=== PATIENT | female | born 2000 | race Two or more races ===

== ENCOUNTER 2020-08-05 19:03 | Emergency (ER) | payer MEDICAID ==
[~2020-08-05] VITALS: Ht 170.2 cm; Wt 68.0 kg
--- NOTE | 2020-08-05 19:23 | NUR ---
PA at bedside to evaluate patient
--- NOTE | 2020-08-05 19:25 | NUR ---
BIBS FOR C/O DIZZINESS, DYSURIA, "UTI" AND SORETHROAT . PT AMBULATORY TO BED 2, A, OX4. WAS PLACED TRIXIE MONITOR. VSS
[2020-08-05] MEDS ORDERED: MECLIZINE HCL 12.5 MG TABLET PO ONE (19:30)
[2020-08-05] MEDS ORDERED: IV NS 0.9% 1,000 ML BAG IV ONE (19:30)
[2020-08-05] MEDS ORDERED: MECLIZINE HCL 25 MG TABLET ONE (19:36)
[2020-08-05 19:51] LABS: BASOPHILS % (AUTO) 0.6 % (0.0-2.0); EOSINOPHILS % (AUTO) 1.7 % (0.0-6.0); HEMATOCRIT 45 % (33-45); HEMOGLOBIN 14.5 g/dL (11.5-14.8); LYMPHOCYTES # (AUTO) 1.7 /CMM (0.8-4.8); LYMPHOCYTES % (AUTO) 25.2 % (20.0-44.0); MEAN CORPUSCULAR HGB CONC 32 g/dl (31.0-36.0); MEAN CORPUSCULAR VOLUME 87 fL (82-100); MONOCYTES # (AUTO) 0.7 /CMM (0.1-1.30); MONOCYTES % (AUTO) 10.9 % (2.0-12.0); NEUTROPHILS # (AUTO) 4.2 /CMM (1.8-8.9); NEUTROPHILS % (AUTO) 61.6 % (43.0-81.0); PLATELET COUNT (AUTO) 303 /CMM (150-450); RED BLOOD CELL COUNT(AUTO) 5.18 MIL/uL (4.0-5.2); WHITE BLOOD COUNT (AUTO) 6.8 K/uL (4.3-11.0)
[2020-08-05 19:58] LABS: CALCIUM, SERUM 8.7 mg/dL (8.5-10.1); POTASSIUM 3.7 mmol/L (3.5-5.1)
--- NOTE | 2020-08-05 20:00 | NUR ---
URINE AND RAPID STREP COLLECTED AND SENT TO LAB
[2020-08-05 20:06] LABS: APPEARANCE,URINE CLOUDY (CLEAR); BILIRUBIN,URINE NEGATIVE (NEGATIVE); BLOOD, URINE NEGATIVE Ery/uL (NEGATIVE); COLOR,URINE YELLOW (YELLOW); KETONES,URINE NEGATIVE (NEGATIVE); LEUKOCYTE ESTERASE ,URINE NEGATIVE (NEGATIVE); NITRITE, URINE NEGATIVE (NEGATIVE); PROTEIN,URINE NEGATIVE (NEGATIVE); UGLUCOSE NEGATIVE (NEGATIVE); UROBILINOGEN,URINE 0.2 EU/dL (0.2)
[2020-08-05 20:12] LABS: MONOTEST NEGATIVE (NEGATIVE)
[2020-08-05 20:16] LABS: BACTERIA,URINE None seen /HPF (None Seen); RBC,URINE 0-2 /HPF (0-2); SQUAMOUS EPITHELIAL CELL,UR 0-2 /HPF (None Seen); URINE AMORPHOUS PHOSPHATES Moderate /HPF (None Seen); WBC,URINE 0-2 /HPF (0-3)
--- NOTE | 2020-08-05 21:09 | NUR ---
pt is medically stable for d/c. IV removed. Catheter intact and site benign. Pressure and 4x4 applied to site. No bleeding noted.Patient discharged to home in stable condition. Rx and Written and verbal after care instructions given. Patient verbalizes understanding of instruction.
[2020-08-05 22:28] VITALS: BP 111/71
== END 2020-08-05 22:09 | disposition home or self-care (01) ==
LOC: ER 19:07
DX: R42 Dizziness and giddiness (principal); B37.3 Candidiasis of vulva and vagina; J02.9 Acute pharyngitis, unspecified; R20.2 Paresthesia of skin
CPT/HCPCS: 36415; 80048; 81001; 84703; 85025; 86308; 87070; 87880; 96360; 99285; J7030; J8597; 81000-TC; 86403-TC

== ENCOUNTER 2022-04-08 14:46 | Emergency (ER) | payer MEDICAID ==
[~2022-04-08] VITALS: Ht 172.7 cm; Wt 66.2 kg
--- NOTE | 2022-04-08 15:00 | NUR ---
BIBS for c/o "Abdominal/Back pain, Nausea. Had UTI 1wk ago". Rates pains 06/03. Will continue to monitor the patient.
--- NOTE | 2022-04-08 15:05 | NUR ---
RECEIVED PT 22 YRS FEMALE C/O ABDOMINALE PAIN FOR 2 DAY AND BACK PAIN FOR 2 DAY C/O VOMITING
[2022-04-08] MEDS ORDERED: ONDANSETRON HCL/PF 4 MG/2 ML VIAL IVP ONE (15:30)
[2022-04-08] MEDS ORDERED: KETOROLAC TROMETHAMINE INJ 30 MG/ML VIAL IV ONE (15:30)
[2022-04-08] MEDS ORDERED: ACETAMINOPHEN ES 500 MG TABLET PO ONE (15:30)
[2022-04-08] MEDS ORDERED: IV NS 0.9% 1,000 ML BAG IV ONE (15:30)
[2022-04-08] MEDS ORDERED: ACETAMINOPHEN ES 500 MG TABLET ONE (15:41)
[2022-04-08] MEDS ORDERED: ONDANSETRON HCL/PF 4 MG/2 ML VIAL ONE (15:41)
[2022-04-08] MEDS ORDERED: KETOROLAC TROMETHAMINE 15 MG/ML VIAL ONE (15:41)
--- NOTE | 2022-04-08 15:45 | NUR ---
BLOOD DROW AND SENT TO LAB UA SENT TO LAB
--- NOTE | 2022-04-08 16:00 | NUR ---
EXAMINE BY DR. GALEANA
[2022-04-08 16:14] LABS: BASOPHILS % (AUTO) 0.3 % (0.0-2.0); EOSINOPHILS % (AUTO) 0.1 % (0.0-6.0); HEMATOCRIT 45 % (33-45); HEMOGLOBIN 14.9 g/dL (11.5-14.8); LYMPHOCYTES # (AUTO) 1.2 K/uL (0.8-4.8); LYMPHOCYTES % (AUTO) 9.5 % (20.0-44.0); MEAN CORPUSCULAR HGB CONC 33 g/dl (31.0-36.0); MEAN CORPUSCULAR VOLUME 86 fL (82-100); MONOCYTES # (AUTO) 1.1 K/uL (0.1-1.30); MONOCYTES % (AUTO) 8.4 % (2.0-12.0); NEUTROPHILS # (AUTO) 10.4 K/uL (1.8-8.9); NEUTROPHILS % (AUTO) 81.7 % (43.0-81.0); PLATELET COUNT (AUTO) 260 K/uL (150-450); RED BLOOD CELL COUNT(AUTO) 5.25 MIL/uL (4.0-5.2); WHITE BLOOD COUNT (AUTO) 12.7 K/uL (4.3-11.0)
--- NOTE | 2022-04-08 16:17 | NUR ---
PELVIC AND ABDOMINALE US DONE AT BED SIDE
[2022-04-08 16:20] LABS: BILIRUBIN,URINE NEGATIVE (NEGATIVE); COLOR,URINE YELLOW (YELLOW); LEUKOCYTE ESTERASE ,URINE MODERATE (NEGATIVE); NITRITE, URINE NEGATIVE (NEGATIVE); PH,URINE 6.5 (5.0-8.0); PROTEIN,URINE TRACE mg/dl (NEGATIVE); UGLUCOSE NEGATIVE (NEGATIVE); UROBILINOGEN,URINE 0.2 EU/dL (0.2)
--- NOTE | 2022-04-08 16:25 | NUR ---
BACK FROM CT LEAL OF ABDOMIN
[2022-04-08 16:29] LABS: CALCIUM, SERUM 9.9 mg/dL (8.5-10.1); CREATININE 0.9 mg/dL (0.6-1.3)
--- NOTE | 2022-04-08 16:30 | NUR ---
PEGGY HAWKINS SEND TO LAB
[2022-04-08 16:34] LABS: ALBUMIN 4.3 g/dL (3.4-5.0); BILIRUBIN,DIRECT 0.1 mg/dL (0.0-0.2); BILIRUBIN,TOTAL 0.5 mg/dL (0.2-1.0)
[2022-04-08 17:01] LABS: BACTERIA,URINE 2+ /HPF (None Seen); SQUAMOUS EPITHELIAL CELL,UR 0-2 /HPF (None Seen); WBC,URINE 21-50 /HPF (0-3)
[2022-04-08] MEDS ORDERED: CEFTRIAXONE 1 G in IV D5W 50 ML IV ONE (17:30)
[2022-04-08] MEDS ORDERED: CEFTRIAXONE 1GM BAG (ER ONLY) 50 ML IV ONE (17:30)
[2022-04-08] MEDS ORDERED: ONDA4TAB5 PO (17:30)
[2022-04-08] MEDS ORDERED: CEPH500C2 PO (17:30)
[2022-04-08] MEDS ORDERED: IBUP-1955 PO (17:30)
--- NOTE | 2022-04-08 18:55 | NUR ---
PT FEELING MATCH BEATER IMPROVING AND DINESES BACK PAIN 0/10 AND ABDOMINALE PAIN 2/10 D/C INSTRACTION GIVEN TO PT FULLY AND VERBLIZED UNDERSTOOD
[2022-04-08 19:07] VITALS: BP 111/63
== END 2022-04-08 19:08 | disposition home or self-care (01) ==
LOC: ER 15:00
DX: N39.0 Urinary tract infection, site not specified (principal); R10.31 Right lower quadrant pain; R11.0 Nausea; Z20.822 Contact with and (suspected) exposure to COVID-19; R31.9 Hematuria, unspecified
CPT/HCPCS: 36415; 71045; 74176; 76856; 80048; 80076; 81001; 83690; 84703; 85025; 87077; 87086; 87186; 87426; 96361; 96365; 96375; 99285; C9803; J0696; J1885; J2405; J7030